=== PATIENT | male | born 1955 | race Caucasian/White ===

== ENCOUNTER 2017-06-29 13:42 | Emergency (ER) | payer OTHER ==
[~2017-06-29] VITALS: Ht 188 cm; Wt 106.6 kg
[2017-06-29 13:52] LABS: HEMATOCRIT 45.1 % (42.0-52.0); HEMOGLOBIN 15.6 gm/dL (14.0-18.0); MCHC 34.5 g/dL (28.0-37.0); MCV 92.6 fL (80.0-100.0); RBC 4.87 mil/uL (4.50-6.00); RDW 14.4 % (10.5-14.5); WBC 13.6 thou/uL (4.0-11.0)
[2017-06-29 14:00] LABS: CALCIUM 9.3 mg/dL (8.5-10.1); CREATININE 1.9 mg/dL (0.7-1.3)
[2017-06-29] MEDS ORDERED: LIPITOR10 MG PO (14:01)
[2017-06-29] MEDS ORDERED: ASPIR 8181 MG PO (14:01)
[2017-06-29] MEDS ORDERED: NEURONTIN600 MG PO (14:01)
[2017-06-29 14:06] LABS: ALBUMIN 3.8 g/dL (3.4-5.0); TOTAL BILIRUBIN 0.4 mg/dL (<0.1-1.0); TOTAL PROTEIN 7.8 g/dL (6.4-8.2)
[2017-06-29 15:19] LABS: ABSOLUTE NEUTROPHILS 7.5 thou/uL (1.4-8.2); BASOPHILS 1.3 % (0.0-2.0); EOSINOPHILS 1.2 % (0.0-3.0); HEMATOCRIT 44.5 % (42.0-52.0); HEMOGLOBIN 15.3 gm/dL (14.0-18.0); MCH 31.8 pg (26.0-34.0); MCHC 34.4 g/dL (28.0-37.0); MCV 92.4 fL (80.0-100.0); MONOCYTES 7.1 % (1.0-8.0); PLATELET COUNT 266 thou/uL (150-400); POLYS 55.4 % (36.0-66.0); RBC 4.82 mil/uL (4.50-6.00); RDW 14.3 % (10.5-14.5); WBC 13.6 thou/uL (4.0-11.0)
[2017-06-29 17:31] VITALS: BP 119/59
== END 2017-06-29 17:32 | disposition short-term general hospital (02) ==
LOC: ER 13:42
PROVIDERS: Physician Assistant
DX: S68.116A Complete traumatic metacarpophalangeal amputation of right little finger, initial encounter (principal); S68.114A Complete traumatic metacarpophalangeal amputation of right ring finger, initial encounter; S68.620A Partial traumatic transphalangeal amputation of right index finger, initial encounter; F17.210 Nicotine dependence, cigarettes, uncomplicated; W45.8XXA Other foreign body or object entering through skin, initial encounter; Y93.89 Activity, other specified; Y92.89 Other specified places as the place of occurrence of the external cause; Y99.8 Other external cause status